=== PATIENT | male | born 1970 | race Caucasian/White ===

== ENCOUNTER 2019-09-21 08:40 | Outpatient (CLI) | payer BC, SELFPAY ==
--- NOTE | ~2019-09-21 | XR_ITS ---
XR lumbar spine 2-3V 09/21/2019 09:20 Indication: Low back pain Procedure: 2 views lumbar spine Comparison: No prior studies for comparison. Findings: There is disc narrowing and endplate degenerative changes at L3-4, L4-5 and L5-S1. There is moderate facet hypertrophy at L4-5 and L5-S1. No fracture or traumatic malalignment. No evidence for spondylolisthesis. Impression: 1: Moderate lumbar spondylosis. Reviewed, dictated and finalized at location B. Impression: 1: Moderate lumbar spondylosis.
--- NOTE | ~2019-09-21 | US_ITS ---
US abdomen complete EXAMINATION: US Abdomen Complete INDICATION: Liver disease PROCEDURE: Realtime High Resolution abdomen ultrasound. COMPARISON: No prior studies for comparison FINDINGS: Gallbladder within normal limits. No gallstones, pericholecystic fluid, gallbladder wall t hickening or biliary dilatation. Common bile duct measures 3.8 mm. Liver echotexture within normal limits without focal mass. Pancreas within normal limits. Pancreati c tail is obscured by bowel gas. Spleen is unremarkeable. Renal echotexture is within normal limits bilaterally without hydronephrosis, contour deforming mass or renal stone. Right kidney measures 10.9 cm. Left kidney measures 11.4 cm. Visualized aspects of the aorta are within normal limits. IVC not visualized. Portal vein is patent. No sonographic Gonzalez's sign indicated by the technologist. IMPRESSION: 1: Unremarkable abdominal ultrasound. Reviewed, dictated and finalized at location B.
== END 2019-09-21 08:41 | disposition home or self-care (01) ==
LOC: ANHIMG 08:49
PROVIDERS: PCP Emergency Medicine; Visit Provider Emergency Medicine
DX: K76.9 Liver disease, unspecified (principal); M54.41 Lumbago with sciatica, right side; M47.896 Other spondylosis, lumbar region
CPT/HCPCS: 72100; 76700

== ENCOUNTER 2024-09-02 10:18 | Emergency (ER) | payer BC, SELFPAY ==
[2024-09-02 10:27] VITALS: BP 145/85; PULSE 70; RESP 16; TEMP 35.9; O2SAT 100
--- NOTE | 2024-09-02 10:39 | ED.BACK ---
HPI - Back Pain/Injury General Chief Complaint: Back Pain/Injury Stated Complaint: BACK PAIN Time Seen by Provider: 09/02/24 10:25 Source: patient and RN notes reviewed Mode of arrival: ambulatory Limitations: no limitations History of Present Illness HPI Narrative: 53-year-old male presents [facility] complaining of right lower back pain since yesterday. Patient denies any apparent injury but states he might have did something wrong with his lower back when he was lifting a watermelon into a shopping cart yesterday. Patient denies any falls. Patient states the pain is worse with certain movements of his back. Patient has tried Tylenol, heat, and ice without any relief. Patient denies any saddle anesthesia, weakness in his legs, loss of bowel or bladder function, urinary symptoms, or any other symptoms. Related Data Home Medications ?Medication ?Instructions ?Recorded ?Confirmed ?Last Taken ?Type irbesartan 150 mg tablet mg 09/02/24 Unknown History nebivolol 20 mg tablet mg 09/02/24 Unknown History rosuvastatin 20 mg tablet mg 09/02/24 Unknown History Allergies Allergy/AdvReac Type Severity Reaction Status Date / Time No Known Allergies Allergy Verified 09/02/24 10:26 Review of Systems Review of Systems: CONSTITUTIONAL: Denies fever, chills, or sweats. EYES: Denies visual changes, redness, or discharge. ENT: Denies rhinorrhea, congestion, sore throat, or otalgia. CARDIOVASCULAR: Denies chest pain, palpitations, or edema. RESPIRATORY: Denies cough or dyspnea. GASTROINTESTINAL: Denies abdominal pain, nausea, vomiting, or diarrhea. GENITOURINARY: Denies dysuria or hematuria. SKIN: Denies rash or itching. MUSCULOSKELETAL: Positive for back pain. Negative for joint pain, or myalgia. NEUROLOGIC: Denies headache, numbness, saddle anesthesia, loss of bowel or bladder, or weakness. PSYCHIATRIC: Denies anxiety or depression. All other systems reviewed are negative, except as documented in HPI. PMFSH Comments At the time of my signature, I reviewed and agree with the nursing past medical, surgical, social, and family history. There is no relevant family history pertinent to the patient complaint. Exam Narrative: GENERAL: This is a well-nourished, well-developed adult, in no apparent distress. They are non ill-appearing, nontoxic appearing. HEAD: normocephalic, atraumatic. EYES: Sclera clear/white. Conjunctiva normal. Vision is grossly intact. Extraocular movements intact EARS: External ears normal, Hearing grossly intact. NOSE: External nose normal THROAT: Mucous membranes moist, NECK: Neck supple, CARDIOVASCULAR: Regular rate and rhythm RESPIRATORY: Respiratory rate normal, respiratory effort nonlabored, no respiratory distress SKIN: warm, Dry, intact with no suspicious lesions or rash, good texture and turgor. NEURO: awake, alert, and oriented to person, place and time. There were no obvious focal neurologic abnormalities. EXTREMITIES: No joint tenderness, effusion, or edema noted. BACK: Tenderness to palpation to right lower back.. No CVA tenderness. No cervical, thoracic, lumbar point tenderness, crepitus, or step-offs. Course Course Emergency Course: Portions of this record may have been created with voice recognition software Level of Care: Express Care Visit Vital Signs Vital signs: Vital Signs Temperature 96.7 F L 09/02/24 10:27 Pulse Rate 70 09/02/24 10:27 Respiratory Rate 16 09/02/24 10:27 Blood Pressure 145/85 H 09/02/24 10:27 Pulse Oximetry 100 09/02/24 10:27 Temperature 96.7 F L 09/02/24 10:27 Pulse Rate 70 09/02/24 10:27 Respiratory Rate 16 09/02/24 10:27 Blood Pressure 145/85 H 09/02/24 10:27 Pulse Oximetry 100 09/02/24 10:27 Reviewed MDM - Back Pain/Injury MDM Narrative Medical decision making narrative: Likely lumbar strain. Will Prescribe lidocaine patches and muscle relaxers. Discussed physical exam findings. Advised supportive measures and signs/symptoms to go to the ER. Pt is appropriate for outpt treatment and f/u. Differential Diagnosis Differential diagnosis: Likely lumbar radiculopathy, sciatica and strain of lumbar region Critical Care Time Critical Care Time Critical Care Time: No Discharge Plan Discharge Clinical Impression: Strain of lumbar region Qualifiers: Encounter type: initial encounter Qualified Code(s): S39.012A - Strain of muscle, fascia and tendon of lower back, initial encounter Patient Disposition: Home Condition: Stable Instructions: Acute Low Back Pain (ED), Lower Back Exercises (ED) Additional Instructions: Take the muscle relaxer as directed. Do not drive or operate heavy machine, or work while taking the medication as it can make you drowsy. Use the lidocaine patches as directed. You may take Tylenol or ibuprofen as needed Please follow-up with your primary care provider if pain persist Rest. Avoid pushing, pulling, lifting --running or excessive walking-- or anything that worsens the symptoms You may try stretching your lower back or doing spinal decompression to help with symptoms. Go to the emergency department if you develop any numbness or tingling to your groin, weakness in your legs, or any loss of bowel or bladder function. Patient Language: [place] Prescriptions: New methocarbamol 750 mg tablet 750 mg PO TID Qty: 15 0RF lidocaine 5 % adhesive patch,medicated 1 patch topical DAILY Qty: 15 0RF Rx Instructions: leave on most painful area for up to 12 hrs No Action irbesartan 150 mg tablet rosuvastatin 20 mg tablet nebivolol 20 mg tablet Follow-up/Referrals: Karthik Dodson MD [Primary Care Provider] - Time of Disposition: 10:38
== END 2024-09-02 10:46 | disposition home or self-care (01) ==
PROVIDERS: PCP Emergency Medicine
DX: S39.012A Strain of muscle, fascia and tendon of lower back, initial encounter (principal); X58.XXXA Exposure to other specified factors, initial encounter; I10 Essential (primary) hypertension; E78.00 Pure hypercholesterolemia, unspecified
CPT/HCPCS: 99203; G0463